=== PATIENT | female | born 1995 | race African-American/Black ===

== ENCOUNTER 2018-07-31 14:35 | Emergency (ER) | payer OTHER ==
[~2018-07-31] VITALS: Ht 160 cm; Wt 59.0 kg
[~2018-07-31 14:35] MED LIST: CORTIZONE-10 1%28 GM VAG; IRON325 PO; MIRALAX255 GM PO; PHENERGAN 25 MG25 M1 PO; PROTONIX40 M4 PO; VAGINAL ITCH CR30 GM VAG
[2018-07-31 15:03] LABS: URINE BILIRUBIN NEGATIVE (Negative); URINE BLOOD 3+ (Negative); URINE CLARITY CLEAR; URINE COLOR YELLOW; URINE GLUCOSE-RANDOM* NEGATIVE (Negative); URINE KETONES NEGATIVE (Negative); URINE LEUKOCYTES-REFLEX NEGATIVE (Negative); URINE NITRITE-REFLEX NEGATIVE (Negative); URINE PROTEIN (DIPSTICK) NEGATIVE (Negative)
[2018-07-31 15:17] LABS: SSA (PROTEIN CONFIRMATORY) NEGATIVE (Negative)
[2018-07-31 15:19] LABS: CASTS None Seen /LPF (None Seen); SQUAMOUS >10 Many /LPF (0-3); URINE WBC-REFLEX 0-5 Rare /HPF (0-5)
[2018-07-31 15:20] LABS: AMORPHOUS PHOSPHATES Few /LPF (None Seen); BACTERIA-REFLEX None Seen /HPF (None Seen)
[2018-07-31 16:24] LABS: ABSOLUTE NEUTROPHILS 4.1 thou/uL (1.4-8.2); BASOPHILS 0.9 % (0.0-2.0); HEMATOCRIT 37.7 % (37.0-47.0); HEMOGLOBIN 12.5 gm/dL (12.0-15.0); LYMPHOCYTES 28.4 % (24.0-44.0); MCH 29.4 pg (26.0-34.0); MCHC 33.3 g/dL (28.0-37.0); MCV 88.3 fL (80.0-100.0); PLATELET COUNT 258 thou/uL (150-400); POLYS 59.7 % (36.0-66.0); RBC 4.26 mil/uL (4.20-5.00); RDW 12.7 % (10.5-14.5); WBC 6.9 thou/uL (4.0-11.0)
[2018-07-31 16:31] LABS: CALCIUM 9.5 mg/dL (8.5-10.1); CREATININE 0.8 mg/dL (0.6-1.0); POTASSIUM 4.3 mmol/L (3.5-5.1)
[2018-07-31] MEDS ORDERED: FLAGYL500 M1 PO (17:01)
[2018-07-31] MEDS ORDERED: NAPROSYN500 MG PO (17:01)
[2018-07-31 19:03] VITALS: BP 111/38
== END 2018-07-31 17:19 | disposition home or self-care (01) ==
LOC: ER 14:35
PROVIDERS: Physician Assistant
DX: N92.0 Excessive and frequent menstruation with regular cycle (principal); N76.0 Acute vaginitis; B96.89 Other specified bacterial agents as the cause of diseases classified elsewhere

== ENCOUNTER 2019-09-01 18:10 | Emergency (ER) | payer OTHER ==
[~2019-09-01] VITALS: Ht 160 cm; Wt 68.0 kg
[~2019-09-01 18:10] MED LIST changes: +FLAGYL500 M1 PO; +NAPROSYN500 MG PO
[2019-09-01 19:02] VITALS: BP 107/59
== END 2019-09-01 19:04 | disposition short-term general hospital (02) ==
LOC: ER 18:10
DX: O26.893 Other specified pregnancy related conditions, third trimester (principal); R10.30 Lower abdominal pain, unspecified; Z98.890 Other specified postprocedural states; Z3A.33 33 weeks gestation of pregnancy